=== PATIENT | female | born 1965 | race Caucasian/White ===

== ENCOUNTER 2020-07-05 16:35 | Emergency (ER) | payer MEDICAID ==
[~2020-07-05] VITALS: Ht 157.5 cm; Wt 85.7 kg
--- NOTE | 2020-07-05 17:01 | NUR ---
pt bib daughter c/o RLE pain and swelling x 5 days. patient was at urgent care and was told to go to ed for possible infection. history of diabetes and hypertension. gowned and placed on monitor. stable vitals. nad noted. awaiting md scott.
--- NOTE | 2020-07-05 17:13 | NUR ---
dr francisco at bedside for eval.
--- NOTE | 2020-07-05 17:15 | NUR ---
iv line established blood drawn and sent to lab
[2020-07-05] MEDS ORDERED: KETOROLAC TROMETHAMINE 15 MG/ML VIAL ONE (17:22)
--- NOTE | 2020-07-05 17:23 | NUR ---
MATERIAL ANALYST AT BEDSIDE FOR ULTRASOUND
[2020-07-05 17:25] LABS: BASOPHILS # (AUTO) 0.1 /CMM (0.0-0.2); BASOPHILS % (AUTO) 0.5 % (0.0-2.0); EOSINOPHILS % (AUTO) 2.2 % (0.0-6.0); HEMATOCRIT 35 % (33-45); HEMOGLOBIN 11.5 g/dL (11.5-14.8); LYMPHOCYTES # (AUTO) 2.6 /CMM (0.8-4.8); LYMPHOCYTES % (AUTO) 22.2 % (20.0-44.0); MEAN CORPUSCULAR HGB CONC 33 g/dl (31.0-36.0); MEAN CORPUSCULAR VOLUME 90 fL (82-100); MONOCYTES # (AUTO) 0.9 /CMM (0.1-1.30); MONOCYTES % (AUTO) 7.3 % (2.0-12.0); NEUTROPHILS % (AUTO) 67.8 % (43.0-81.0); PLATELET COUNT (AUTO) 220 /CMM (150-450); RED BLOOD CELL COUNT(AUTO) 3.87 MIL/uL (4.0-5.2); WHITE BLOOD COUNT (AUTO) 11.8 K/uL (4.3-11.0)
[2020-07-05] MEDS ORDERED: IV NS 0.9% 500 ML BAG IV ONE (17:30)
[2020-07-05] MEDS ORDERED: KETOROLAC TROMETHAMINE INJ 30 MG/ML VIAL IV ONE (17:30)
[2020-07-05 17:48] LABS: BILIRUBIN,DIRECT 0.1 mg/dL (0.0-0.2); BILIRUBIN,TOTAL 0.2 mg/dL (0.2-1.0); CALCIUM, SERUM 8.4 mg/dL (8.5-10.1); POTASSIUM 4.4 mmol/L (3.5-5.1); TOTAL PROTEIN, SERUM 6.6 g/dL (6.4-8.2)
[2020-07-05] MEDS ORDERED: MUPI22OI2 TP (18:26)
[2020-07-05] MEDS ORDERED: CEPH500T PO (18:26)
[2020-07-05 18:29] VITALS: BP 137/73
--- NOTE | 2020-07-05 18:29 | NUR ---
IV removed. Catheter intact and site benign. Pressure and 4x4 applied to site. No bleeding noted. Patient discharged to home in stable condition. Written and verbal after care instructions given. Patient verbalizes understanding of instruction.
== END 2020-07-05 18:33 | disposition home or self-care (01) ==
LOC: ER 16:42
DX: L03.115 Cellulitis of right lower limb (principal); I87.2 Venous insufficiency (chronic) (peripheral); R60.0 Localized edema; I10 Essential (primary) hypertension; E11.9 Type 2 diabetes mellitus without complications
CPT/HCPCS: 36415; 80048; 80076; 83690; 85025; 86140; 93971; 96361; 96374; 99284; J1885; J7040

== ENCOUNTER 2020-07-12 10:50 | Inpatient (IN) | payer MEDICAID ==
[~2020-07-12] VITALS: Ht 154.9 cm; Wt 79.8 kg
[~2020-07-12 10:50] MED LIST: CEPH500T PO; MUPI22OI2 TP
[2020-07-12] MEDS ORDERED: KETOROLAC TROMETHAMINE INJ 30 MG/ML VIAL ONE (11:30)
--- NOTE | 2020-07-12 11:37 | NUR ---
BIBS FROM HOME TO ER BED 6. AAOX4. NOT IN RESP DISTRESS. AMBULATORY. CAME IN FOR R LOWER LEG SWELLING, REDNESS AND PAIN X 1 WEEK. PER PT, PAIN STARTED TODAY. RATED @ 8/10. NOTED REDNESS, SWELLING AND MULTIPLE OPEN WOUNDS. MD WAST AT THE BEDSIDE FOR EVEAL. ORDERS RECEIVED, NOTED AND CARRIED OUT. PHLEB AT BEDSIDE FOR BLOOD DRAW.
[2020-07-12 11:45] LABS: BASOPHILS % (AUTO) 0.4 % (0.0-2.0); EOSINOPHILS % (AUTO) 3.5 % (0.0-6.0); HEMATOCRIT 35 % (33-45); HEMOGLOBIN 11.7 g/dL (11.5-14.8); LYMPHOCYTES # (AUTO) 2.2 /CMM (0.8-4.8); LYMPHOCYTES % (AUTO) 19.6 % (20.0-44.0); MEAN CORPUSCULAR HGB CONC 33 g/dl (31.0-36.0); MEAN CORPUSCULAR VOLUME 89 fL (82-100); MONOCYTES # (AUTO) 0.5 /CMM (0.1-1.30); MONOCYTES % (AUTO) 4.7 % (2.0-12.0); NEUTROPHILS % (AUTO) 71.8 % (43.0-81.0); PLATELET COUNT (AUTO) 251 /CMM (150-450); RED BLOOD CELL COUNT(AUTO) 3.94 MIL/uL (4.0-5.2); WHITE BLOOD COUNT (AUTO) 11.1 K/uL (4.3-11.0)
[2020-07-12 11:55] LABS: CREATININE 0.9 mg/dL (0.6-1.3); POTASSIUM 4.9 mmol/L (3.5-5.1)
[2020-07-12 12:00] LABS: CALCIUM, SERUM 8.9 mg/dL (8.5-10.1)
[2020-07-12] MEDS ORDERED: KETOROLAC TROMETHAMINE INJ 60 MG/2 ML VIAL IM ONE (12:00)
--- NOTE | 2020-07-12 12:10 | NUR ---
us at beside
--- NOTE | 2020-07-12 12:49 | NUR ---
2nd time following up with lab regarding covid swab. swab still not delivered by lab. spoke with
--- NOTE | 2020-07-12 12:54 | NUR ---
swab done and sent to lab
--- NOTE | 2020-07-12 12:57 | NUR ---
CALLED [facility].
[2020-07-12] MEDS ORDERED: CLINDAMYCIN 600 MG in IV D5W 100 ML IV ONE (13:00)
[2020-07-12] MEDS ORDERED: LABETALOL HCL IV 100MG VIAL ONE (13:32)
[2020-07-12] MEDS ORDERED: *INS REG3 IJ (13:44)
[2020-07-12] MEDS ORDERED: INSU100V7 SQ ×2 (13:44)
[2020-07-12] MEDS ORDERED: HYDR25TA4 PO (13:44)
[2020-07-12] MEDS ORDERED: LISI40TA13 PO (13:44)
--- NOTE | 2020-07-12 13:49 | NUR ---
NURSING SUP GAVE 320-2.
[2020-07-12] MEDS ORDERED: LABETALOL 20 MG/4 ML VIAL IV ONE (14:00)
--- NOTE | 2020-07-12 14:35 | NUR ---
erpot given to zoila montana for jason
--- NOTE | 2020-07-12 14:56 | NUR ---
PT TRANSPORTED TO UNIT ON [place] WITH EMT AT BEDSIDE. PT IS IN STABLE CONDITION FOR TRANSPORT.
--- NOTE | 2020-07-12 15:00 | NUR ---
RN ADMITTING NOTES PT TRANSPORTED BY BED TO UNIT FROM ED AT THIS TIME RECEIVED REPORT FROM [facility] @ ED , PT AOX4. PT ABLE TO MAKE NEEDS KNOWN. NO SOB NOTED, NO C//O OF PAIN AT THIS TIME, NO S/S OF ANY APPARENT DISTRESS NOTED.RESPIRATIONS EVEN AND UNLABORED, ACTIVE BOWEL SOUNDS AUSCULTATED THROUGHOUT, SKIN WARM TO TOUCH. CAPILLARY REFILL< 3SECONDS, PULSES PRESENT BILATERALLY, GOOD CIRCULATION NOTED. PT NOTED WITH BLE WOUNDS AND RIGHT ARM BRUISE. PICTURES TAKEN AND FILED IN CHART. IV ACCESS NOTED IN LAC G#20, INTACT, PATENT AND FLUSHING WELL. PT'S BELONGINGS ACCOUNTED FOR, AND KEPT AT PT'S BEDSIDE PER PT REQUEST. ASPIRATION AND SAFETY PRECAUTIONS IN PLACE AND MAINTAINED AT ALL TIMES. BED IN LOWEST LOCKED POSITION, SIDE RAILS UPX2, TABLE AND CALL LIGHT WITHIN REACH. WILL CONTINUE WITH PLAN OF CARE
--- NOTE | 2020-07-12 16:55 | NUR ---
PT WITH BLE CELLULITIS AND VTE SCORE OF 2, DR ROSARIO MADE AWARE, AWAITING ORDERS FOR CHEMICAL PROPHYLAXIS, WILL CONTINUE WITH PLAN OF CARE
[2020-07-12] MEDS ORDERED: Z GUARD REMEDY 2 OZ OINT TP PRN (19:30)
[2020-07-12] MEDS ORDERED: ZOLPIDEM TARTRATE 5 MG TABLET PO PRN (19:30)
[2020-07-12] MEDS ORDERED: ONDANSETRON HCL/PF 4 MG/2 ML VIAL IVP PRN (19:30)
[2020-07-12] MEDS ORDERED: DEXTROSE 50%-WATER 50 ML DISP.SYRIN IV PRN (19:30)
--- NOTE | 2020-07-12 19:30 | NUR ---
MS/RN OPENING NOTE RECEIVED PATIENT RESTING IN BED. AWAKE, ALERT AND ORIENTED X 4. ABLE TO MAKE NEEDS KNOWN. PRIMARILY AZER[place] SPEAKING BUT UNDERSTANDS SOME STATELESS. COMPLAINTS OF HEADACHE AT THIS TIME - WILL ADMINISTER ORDERED MEDICATION. IV ACCESS TO LEFT AC #20G INTACT, PATENT AND SALINE LOCKED. CONTINUES ON CARDIAC DIET. CALL LIGHT WITHIN REACH. ASPIRATION, FALL AND SAFETY PRECAUTIONS MAINTAINED. WILL CONTINUE TO MONITOR.
[2020-07-12] MEDS: HYDROCODONE/APAP 10/325MG TABLET PO PRN (19:35)
--- NOTE | 2020-07-12 19:40 | NUR ---
MS/RN NOTE ADMINISTERED NORCO FOR HEADACHE WITH PENDING EFFECT.
[2020-07-12 20:00] VITALS: BP 157/63
[2020-07-12] MEDS: ENOXAPARIN SODIUM 40 MG/0.4 ML DISP.SYRIN SQ SCH (20:36)
[2020-07-12] MEDS ORDERED: VANCOMYCIN 1.25 GM in IV D5W 250 ML IV ONE (21:00)
[2020-07-12] MEDS ORDERED: INSULIN GLARGINE, 100 UNIT/ML CARTRIDGE SQ SCH (22:00)
[2020-07-12] MEDS: BLOOD SUGAR DIAGNOSTIC 1 EACH STRIP IN SCH (22:19)
[2020-07-12] MEDS: INSULIN GLARGINE, 100 UNIT/ML CARTRIDGE SQ SCH (22:20)
[2020-07-12] MEDS: INSULIN REGULAR, HUMAN 100 UNIT/ML 3 ML VIAL SQ PRN (22:25)
[2020-07-13] MEDS: HYDROCODONE/APAP 10/325MG TABLET PO PRN (05:55)
[2020-07-13 06:20] LABS: BASOPHILS % (AUTO) 0.3 % (0.0-2.0); EOSINOPHILS % (AUTO) 4.3 % (0.0-6.0); HEMATOCRIT 30 % (33-45); HEMOGLOBIN 10.2 g/dL (11.5-14.8); LYMPHOCYTES # (AUTO) 2.5 /CMM (0.8-4.8); LYMPHOCYTES % (AUTO) 23.5 % (20.0-44.0); MEAN CORPUSCULAR HGB CONC 34 g/dl (31.0-36.0); MEAN CORPUSCULAR VOLUME 89 fL (82-100); MONOCYTES # (AUTO) 0.7 /CMM (0.1-1.30); MONOCYTES % (AUTO) 6.5 % (2.0-12.0); NEUTROPHILS # (AUTO) 6.9 /CMM (1.8-8.9); NEUTROPHILS % (AUTO) 65.4 % (43.0-81.0); PLATELET COUNT (AUTO) 235 /CMM (150-450); RED BLOOD CELL COUNT(AUTO) 3.38 MIL/uL (4.0-5.2); WHITE BLOOD COUNT (AUTO) 10.5 K/uL (4.3-11.0)
--- NOTE | 2020-07-13 06:20 | NUR ---
MS/RN CLOSING NOTE PATIENT CURRENTLY RESTING IN BED. AWAKE, ALERT AND ORIENTED X 4. ABLE TO MAKE NEEDS KNOWN. PRIMARILY [place] SPEAKING BUT UNDERSTANDS SOME TAMAZIGHT. IV ACCESS TO LEFT AC #20G INTACT, PATENT AND SALINE LOCKED. CONTINUES ON CARDIAC DIET. BLOOD GLUCOSE LEVEL THIS AM IS 116. CALL LIGHT WITHIN REACH. ASPIRATION, FALL AND SAFETY PRECAUTIONS MAINTAINED. WILL ENDORSE PLAN OF CARE TO ONCOMING SHIFT.
[2020-07-13] MEDS: BLOOD SUGAR DIAGNOSTIC 1 EACH STRIP IN SCH ×4 (06:27→22:18)
[2020-07-13 06:43] LABS: CREATININE 0.9 mg/dL (0.6-1.3); MAGNESIUM 2.3 mg/dL (1.8-2.4); PHOSPHORUS 4.9 mg/dL (2.5-4.9); POTASSIUM 4.3 mmol/L (3.5-5.1)
--- NOTE | 2020-07-13 07:32 | NUR ---
MS RN OPENING NOTES RECEIVED PATIENT AWAKE IN BED. ALERT AND ORIENTED X4. TOLERATING WELL ON ROOM AIR. NO SIGNS OR SYMPTOMS OF DISTRESS NOTED. NO COMPLAINTS OF PAIN AT THIS TIME. ABLE TO MAKE NEEDS KNOWN. SAFETY MEASURES IN PLACE, SIDE RAILS X 2 RAISED AND BED AT LOWEST POSITION. CALL LIGHT WITHIN REACH. WILL CONTINUE TO MONITOR THROUGHOUT SHIFT.
[2020-07-13 08:00] VITALS: BP 159/66
[2020-07-13] MEDS: LISINOPRIL (20MG) 20 MG TABLET PO SCH (08:32)
[2020-07-13] MEDS: HYDROCHLOROTHIAZIDE 25 MG TABLET PO SCH (08:33)
[2020-07-13] MEDS: VANCOMYCIN 0.75 GM in IV D5W 250 ML IV SCH ×2 (08:34→20:11)
[2020-07-13] MEDS: INSULIN REGULAR, HUMAN 100 UNIT/ML 3 ML VIAL SQ PRN ×3 (11:57→22:18)
[2020-07-13] MEDS: diphenhydrAMINE HCL 50 MG/ML VIAL IV PRN ×2 (12:37→20:12)
--- NOTE | 2020-07-13 14:44 | NUR ---
MS RN NOTE PATIENT IS ASLEEP COMFORTABLE IN BED, EASY TO AROUSE. NO SIGNS AND SYMPTOMS OF DISTRESS NOTED. NO COMPLAINTS OF PAIN AT THIS TIME. SAFETY MEASURES IN PLACE. SIDE RAILS UP X 2, BED LOCKED AT LOWEST POSITION. WILL CONTINUE TO MONITOR THROUGHOUT SHIFT.
--- NOTE | 2020-07-13 19:06 | NUR ---
MS RN CLOSING NOTES RECEIVED PATIENT AWAKE IN BED. ALERT AND ORIENTED X4. TOLERATING WELL ON ROOM AIR. NO SIGNS OR SYMPTOMS OF DISTRESS NOTED. NO COMPLAINTS OF PAIN AT THIS TIME. ABLE TO MAKE NEEDS KNOWN. SAFETY MEASURES IN PLACE, SIDE RAILS X 2 RAISED AND BED AT LOWEST POSITION. CALL LIGHT WITHIN REACH. WILL ENDORSE TO ONCOMING SHIFT.
--- NOTE | 2020-07-13 19:30 | NUR ---
MS/RN OPENING NOTES RECEIVED PATIENT RESTING. PATIENT IS ALERT AND ORIENTED X 4. PATIENT BREATHING IS EVEN AND UNLABORED, NO SIGNS OF RESPIRATORY DISTRESS NOTED. NO ACUTE DISTRESS NOTED. IV ACCESS INTACT FLUSHING WELL, LAC 20G. SAFETY MEASURES ARE IN PLACE, BED LOCKED AND PLACED IN LOW POSITION, SIDE RAIL UP X 2, CALL LIGHT WITHIN REACH. WILL CONTINUE WITH PATIENT PLAN OF CARE.
[2020-07-13 20:00] VITALS: BP 168/61
[2020-07-13] MEDS: ACETAMINOPHEN 325 MG TABLET PO PRN (20:11)
--- NOTE | 2020-07-13 20:15 | NUR ---
MS/RN NOTES PATIENT REQUESTING FOR PAIN MED AND ITCHING MED. PATIENT GIVEN TYLENOL 650MG PO AND BENADRYL 25MG IVP. PATIENT V/S WNL, WILL CONTINUE TO MONITOR.
[2020-07-13] MEDS: ENOXAPARIN SODIUM 40 MG/0.4 ML DISP.SYRIN SQ SCH (21:26)
[2020-07-13] MEDS: INSULIN GLARGINE, 100 UNIT/ML CARTRIDGE SQ SCH (22:17)
[2020-07-14 06:17] LABS: BASOPHILS % (AUTO) 0.4 % (0.0-2.0); EOSINOPHILS % (AUTO) 4.1 % (0.0-6.0); HEMATOCRIT 29 % (33-45); HEMOGLOBIN 9.9 g/dL (11.5-14.8); LYMPHOCYTES # (AUTO) 2.8 /CMM (0.8-4.8); LYMPHOCYTES % (AUTO) 29.5 % (20.0-44.0); MEAN CORPUSCULAR HGB CONC 34 g/dl (31.0-36.0); MEAN CORPUSCULAR VOLUME 89 fL (82-100); MONOCYTES # (AUTO) 0.7 /CMM (0.1-1.30); MONOCYTES % (AUTO) 7.1 % (2.0-12.0); NEUTROPHILS # (AUTO) 5.6 /CMM (1.8-8.9); NEUTROPHILS % (AUTO) 58.9 % (43.0-81.0); PLATELET COUNT (AUTO) 236 /CMM (150-450); WHITE BLOOD COUNT (AUTO) 9.5 K/uL (4.3-11.0)
[2020-07-14] MEDS: BLOOD SUGAR DIAGNOSTIC 1 EACH STRIP IN SCH ×3 (06:25→17:09)
--- NOTE | 2020-07-14 06:50 | NUR ---
MS/RN CLOSING NOTES PATIENT RESTING IN BED. PATIENT IS ALERT AND ORIENTED X 4. PATIENT BREATHING IS EVEN AND UNLABORED, NO SIGNS OF RESPIRATORY DISTRESS NOTED. NO ACUTE DISTRESS NOTED. IV ACCESS INTACT FLUSHING WELL, LAC 20G. ALL NEEDS HAVE BEEN MET DURING SHIFT. SAFETY MEASURES ARE IN PLACE, BED LOCKED AND PLACED IN LOW POSITION, SIDE RAIL UP X 2, CALL LIGHT WITHIN REACH. WILL ENDORSE CARE TO DAY SHIFT NURSE.
[2020-07-14 07:11] LABS: CALCIUM, SERUM 7.9 mg/dL (8.5-10.1); CREATININE 0.9 mg/dL (0.6-1.3); MAGNESIUM 2.4 mg/dL (1.8-2.4); PHOSPHORUS 4.2 mg/dL (2.5-4.9); POTASSIUM 4.5 mmol/L (3.5-5.1)
--- NOTE | 2020-07-14 07:30 | NUR ---
MS RN OPENING NOTES RECEIVED PATIENT AWAKE IN BED. ALERT AND ORIENTED X4. CHINESE-SPEAKING. TOLERATING WELL ON ROOM AIR. NO SIGNS OR SYMPTOMS OF DISTRESS NOTED. NO COMPLAINTS OF PAIN OR DIZZINESS AT THIS TIME. ABLE TO MAKE NEEDS KNOWN. SAFETY MEASURES IN PLACE, SIDE RAILS X 2 RAISED AND BED AT LOWEST POSITION. CALL LIGHT WITHIN REACH. WILL CONTINUE TO MONITOR THROUGHOUT SHIFT.
[2020-07-14 08:00] VITALS: BP 136/67
[2020-07-14] MEDS: VANCOMYCIN 0.75 GM in IV D5W 250 ML IV SCH ×2 (09:19→23:12)
[2020-07-14] MEDS: HYDROCHLOROTHIAZIDE 25 MG TABLET PO SCH (09:20)
[2020-07-14] MEDS: LISINOPRIL (20MG) 20 MG TABLET PO SCH (09:21)
[2020-07-14] MEDS: INSULIN REGULAR, HUMAN 100 UNIT/ML 3 ML VIAL SQ PRN ×2 (12:09→17:12)
--- NOTE | 2020-07-14 13:14 | NUR ---
MS NAYLOR NOTES FOLLOWED UP WITH [facility] REGARDING MRI. PER [facility], THEY ARE STILL UNABLE TO DO AT THIS TIME. THEY WILL CALL ONCE WORKING. Addendum: 07/14/20 at 1330 by NARENDRA BURNETT RN PLS DISREGARD ABOVE NOTE-ERROR
--- NOTE | 2020-07-14 13:30 | NUR ---
PLS DISREGARD PREVIOUS NOTE-ERROR
[2020-07-14] MEDS: ACETAMINOPHEN 325 MG TABLET PO PRN (14:25)
--- NOTE | 2020-07-14 14:37 | NUR ---
MS RN OPENING NOTES PATIENT AWAKE IN BED. ALERT AND ORIENTED X4. [place]-SPEAKING. TOLERATING WELL ON ROOM AIR. NO SIGNS OR SYMPTOMS OF DISTRESS NOTED. COMPLAINT OF HEADACHE AT THIS TIME.TYLENOL 640MG GIVEN, WILL REASSESS PATIENT FOR EFFECTIVENESS.SAFETY MEASURES IN PLACE, SIDE RAILS X 2 RAISED AND BED AT LOWEST POSITION. CALL LIGHT WITHIN REACH. WILL CONTINUE TO MONITOR THROUGHOUT SHIFT.
--- NOTE | 2020-07-14 18:00 | NUR ---
MS RN NOTES BP 158/70 PULSE 70, MADE DR. ABRAHAM STARR AWARE WITH NO NEW ORDERS. OK TO CONTINUE DISCHARGE.
--- NOTE | 2020-07-14 19:12 | NUR ---
MS RN CLOSING NOTES PATIENT IS AWAKE IN BED. NO SIGNS AND SYMPTOMS OF DISTRESS NOTED. NO COMPLAINTS OF PAIN AT THIS TIME. SAFETY MEASURES IN PLACE. SIDE RAILS UP X 2, BED LOCKED AT LOW POSITION. ALL MEDS GIVEN ORDERED. ATTENDED TO ALL PATIENTS NEEDS. WILL CONTINUE TO ENDORSE TO ONCOMING SHIFT.
[2020-07-14] MEDS ORDERED: CLIN300C12 PO (19:21)
[2020-07-14] MEDS ORDERED: TRIA80OI TP (19:21)
--- NOTE | 2020-07-14 19:30 | NUR ---
MS RN OPENING NOTES: RECEIVED PATIENT AWAKE IN BED, AMHARIC SPEAKING, A/OX4, NO COMPLAIN OF PAIN AND DISCOMFORT AT THIS TIME, WIT IV LINE ON LAC #20 PATENT AMBULATORY WITH SUPERVISION, SKIN IS INTACT, TO KEEP RIGHT LEG ELEVATED DUE TO CELLULITIS,ON CARDIAC DIET, WITH RA IV LINE PATENT AND INFUSING WEL, NO SOB NOTED, BED IN LOW POSITION, CALL LIGHTS WITHIN REACH, WILL CONTINUE TO MONITOR.
[2020-07-14 20:11] VITALS: BP 194/83
[2020-07-14] MEDS ORDERED: CLONIDINE HCL 0.1 MG TABLET PO ONE (21:30)
[2020-07-15] MEDS: ENOXAPARIN SODIUM 40 MG/0.4 ML DISP.SYRIN SQ SCH (00:47)
[2020-07-15] MEDS: BLOOD SUGAR DIAGNOSTIC 1 EACH STRIP IN SCH ×2 (00:50→06:48)
[2020-07-15] MEDS: INSULIN REGULAR, HUMAN 100 UNIT/ML 3 ML VIAL SQ PRN ×2 (00:53→06:55)
[2020-07-15] MEDS: INSULIN GLARGINE, 100 UNIT/ML CARTRIDGE SQ SCH (00:55)
--- NOTE | 2020-07-15 04:07 | NUR ---
RN NOTES: PATIENT WAS DUE FOR DISCHARGE, FAMILY WAS HERE FOR STEAMFITTER, INITIAL BLOOD PRESSURE WAS 194/83, PATIENT V/S WAS RE ASSESS AT 2100 BP-202/91, P-76, 02- 98 RR-20, T-93.6, PATIENT WAS NOT COMPLAINING OF ANY PAIN, CALLED DR RUBIO AND ORDERED STAT CLONIDINE HCL 0.1MG, ONE TIME, 2144 PATIENT WAS REASSESS BP-183/76, P-76, HR-19-T-94.8 [id number] PERCENT, REASSESS AT 2230 PATIENT V/S ARE FOLLOWS: BP-193/75, P-77, HR-20, T-96.4, VERBALIZED NO COMPLAIN OF PAIN AND DISCOMFORT, CALLED DR RUIZ AND RELAYED INFO AND ORDER TO DELAYED D/C FOR TOMMORROW. WILL CONTINUE TO MONITOR..
[2020-07-15] MEDS: HYDROCODONE/APAP 10/325MG TABLET PO PRN (06:03)
--- NOTE | 2020-07-15 06:03 | NUR ---
RN NOTES: PATIENT COMPLAIN OF HEADACHE PS-8 NORCO 10-325 GIVEN PRN FOR MILD TO SSEVERE PAIN
[2020-07-15 06:18] LABS: BASOPHILS % (AUTO) 0.4 % (0.0-2.0); EOSINOPHILS % (AUTO) 3.7 % (0.0-6.0); HEMATOCRIT 33 % (33-45); HEMOGLOBIN 11.1 g/dL (11.5-14.8); LYMPHOCYTES # (AUTO) 2.6 /CMM (0.8-4.8); LYMPHOCYTES % (AUTO) 22.6 % (20.0-44.0); MEAN CORPUSCULAR HGB CONC 34 g/dl (31.0-36.0); MEAN CORPUSCULAR VOLUME 88 fL (82-100); MONOCYTES # (AUTO) 0.7 /CMM (0.1-1.30); MONOCYTES % (AUTO) 6.1 % (2.0-12.0); NEUTROPHILS # (AUTO) 7.7 /CMM (1.8-8.9); NEUTROPHILS % (AUTO) 67.2 % (43.0-81.0); PLATELET COUNT (AUTO) 256 /CMM (150-450); RED BLOOD CELL COUNT(AUTO) 3.69 MIL/uL (4.0-5.2); WHITE BLOOD COUNT (AUTO) 11.5 K/uL (4.3-11.0)
--- NOTE | 2020-07-15 07:25 | NUR ---
RN CLOSING NOTES: PATIENT WAS IN BED AWAKE, A/OX4 BED IN LOW POSITION, CALL LIGHTS WITHIN REACH, NO COMPLAIN OF PAIN AND DISCOMFORT AT THIS TIME, KEPT CLEAN AND DRY WILL CONTINUE TO MONITOR.
[2020-07-15 07:35] LABS: CALCIUM, SERUM 8.5 mg/dL (8.5-10.1); CREATININE 0.8 mg/dL (0.6-1.3); MAGNESIUM 2.4 mg/dL (1.8-2.4); PHOSPHORUS 4.1 mg/dL (2.5-4.9); POTASSIUM 4.5 mmol/L (3.5-5.1)
--- NOTE | 2020-07-15 07:45 | NUR ---
RN OPENING NOTES: PATIENT WAS IN BED AWAKE, A/OX4 BED IN LOW POSITION, CALL LIGHTS WITHIN REACH, NO COMPLAIN OF PAIN AND DISCOMFORT AT THIS TIME, KEPT CLEAN AND DRY WILL CONTINUE TO MONITOR.
[2020-07-15 08:00] VITALS: BP 149/75
[2020-07-15] MEDS: VANCOMYCIN 0.75 GM in IV D5W 250 ML IV SCH (08:22)
[2020-07-15] MEDS: HYDROCHLOROTHIAZIDE 25 MG TABLET PO SCH (08:22)
[2020-07-15 08:23] VITALS: BP 149/75
[2020-07-15] MEDS: LISINOPRIL (20MG) 20 MG TABLET PO SCH (08:23)
--- NOTE | 2020-07-15 10:25 | NUR ---
INTERIOR DESIGN DIRECTOR NOTE PT DISCHARGED AND LEFT HOSPITAL AT 1020 , IV SITE SAFELY REMOVED AND LINES CLEANED UP, ALL BELONGINGS ACCOUNTED FOR, DISCHARGE FORM SIGNED. PRESCPTIONS EXPLAINED TO PATIENT AND DAUGHTER AND HOW TO OBTAIN THEM , PATIENT ESCORTED DOWN TO LOBBY WITH DAUGHTER AND SEEN AT DOOR ENTERING THEIR CAR
== END 2020-07-15 10:15 | disposition home or self-care (01) | DRG 383 ==
LOC: ER 11:51 → MED 14:22
PROVIDERS: ADMIT Nurse Practitioner Acute Care; ATTEND Nurse Practitioner Acute Care
DX: L03.115 Cellulitis of right lower limb (principal); E46 Unspecified protein-calorie malnutrition; E66.01 Morbid (severe) obesity due to excess calories; E11.65 Type 2 diabetes mellitus with hyperglycemia; I10 Essential (primary) hypertension; Z68.33 Body mass index [BMI] 33.0-33.9, adult; Z79.4 Long term (current) use of insulin; Z79.899 Other long term (current) drug therapy; Z91.19 Patient's noncompliance with other medical treatment and regimen
CPT/HCPCS: 36415; 80048-TC; 80061-TC; 80202-TC; 82962-TC; 83735-TC; 84100-TC; 85025-TC; 87081-TC; 93971-TC; C9803; G0378; J1200; J1650; J1815; J1885; J2405; J3370; J3490; J7050; J7060

== ENCOUNTER 2020-11-10 09:19 | Emergency (ER) | payer MEDICAID ==
[~2020-11-10] VITALS: Ht 160 cm; Wt 81.6 kg
[~2020-11-10 09:19] MED LIST changes: +*INS REG3 IJ; -CEPH500T PO; +CLIN300C12 PO; +HYDR25TA4 PO; +INSU100V7 SQ; +LISI40TA13 PO; -MUPI22OI2 TP; +TRIA80OI TP
--- NOTE | 2020-11-10 09:34 | NUR ---
SEEN AND EXAMINED BY .
--- NOTE | 2020-11-10 09:40 | NUR ---
TO ER BED 1, C/O BILATERAL LEG SWELLING FOR 1 MONTH, AAOX4, BREATHING EVEN AND NON LABORED, DAUGHTER AT BEDSIDE
--- NOTE | 2020-11-10 09:49 | NUR ---
US AT BEDSIDE
--- NOTE | 2020-11-10 09:49 | NUR ---
US TECH AT BEDSIDE FOR DUPLEX SCAN.
[2020-11-10 10:46] VITALS: BP 127/64
--- NOTE | 2020-11-10 10:46 | NUR ---
Patient discharged to home in stable condition. Written and verbal after care instructions given. Patient verbalizes understanding of instruction.
== END 2020-11-10 10:47 | disposition home or self-care (01) ==
LOC: ER 09:22
DX: R22.42 Localized swelling, mass and lump, left lower limb (principal); I10 Essential (primary) hypertension; E11.9 Type 2 diabetes mellitus without complications; Z79.899 Other long term (current) drug therapy; Z79.4 Long term (current) use of insulin
CPT/HCPCS: 93971-TC